=== PATIENT | male | born 1960 | race Caucasian/White ===

== ENCOUNTER 2025-03-06 17:30 | Inpatient (IN) | payer OTHER, SELFPAY ==
[2025-03-06] VITALS (11 sets, daily range): BP systolic 113–152; BP diastolic 54–81; BMI 32.2; BMI 31.8
[2025-03-06 12:43] LABS: INR 1.03; PT 14.0 Sec (11.4-14.6)
[2025-03-06 12:44] LABS: APTT 32.7 Sec (23.4-35.0); Hematocrit 41.3 % (39.0-52.0); Hemoglobin 14.5 g/dL (13.0-18.0); Mean Corp Hgb Conc. 35.1 g/dL (33.0-37.0); Mean Corpuscular Volume 95.8 fL (80.0-94.0); Nucleated Red Blood Cells % 0 % (-); Platelet Count 118 10^3/uL (130-400); Red Cell Dist. Width 13.4 % (11.5-14.5)
[2025-03-06 12:55] LABS: ALT (SGPT) 18 U/L (0-50); AST (SGOT) 35 U/L (17-59); Albumin 4.3 g/dl (3.5-5.0); Alkaline Phosphatase 79 U/L (38-126); Blood Urea Nitrogen 14 mg/dl (9-20); Calcium 9.1 mg/dl (8.4-10.2); Carbon Dioxide 22 mmol/L (22-30); Chloride 107 mmol/L (98-107); Estimated Creatinine Clearance > 125 ml/min; Glucose 109 mg/dl (70-99); Potassium 4.5 mmol/L (3.5-5.1); Sodium 137 mmol/L (135-145); Total Protein 7.6 g/dl (6.3-8.2); eGFR > 60.00
[2025-03-06 13:06] LABS: Troponin I 0.021 ng/ml
--- NOTE | 2025-03-06 14:56 | ED.GENMED ---
History of Present Illness
General
Chief Complaint: Cardiac Symptoms
Time Seen by Provider: 03/06/25 11:52
Nursing documentation reviewed up to this point in time: agreed with
History of Present Illness
History of Present Illness:
64-year-old male presents to the ER for evaluation of feeling short of breath along with lightheadedness. Admittedly his shortness of breath has been provoked with exertion and worsening in intensity over the last several days. Patient denies any
cough or cold symptoms. He no longer smokes cigarettes but has an extensive prior cigarette smoking history. He does continue to vape and states that he vapes 'a lot' in the car on the way over to the ER. He denies any fevers or chills. He
denies any chest pain but states he felt a severe tightness in his back, that is provoked with exertion. No prior personal history of ACS. He did not take any medications for his symptoms. He denies fevers or chills. He denies sore throat. No
peripheral edema. No prior personal history of DVT.
Past History
Past History
ED Past Medical History: Other (gout right great toe); Negative HTN
ED Past Surgical History: Appendectomy
Social History
Tobacco: Smoker
Alcohol: Occasional
Family History
Family History: Other (Mother with diverticulosis, sister with IBS)
Review of Systems
Review of Systems
Allergies reviewed?: Yes
Phy Exam
Physical Exam
Physical Exam:
Patient is awake, alert, ruborous complexion, appears in no acute distress, head is NCAT, PERRL, EOMI mucous membranes moist, conjunctiva pink, heart regular rate and rhythm without murmurs or ectopy, lungs are clear to auscultation without wheezes
rales or rhonchi, no JVD, abdomen is soft and nontender on palpation, extremities without edema, GCS is 15
Course
Orders/Labs/Results
Orders:
Orders
03/06/25 11:41
Electrocardiogram (*1) Urgent
Reason for Study: Abnormal EKG
03/06/25 11:42
EKG- Treatment ONCE
03/06/25 12:02
O2 Therapy [RESP] Stat
Nasal Cannula Liter Flow: 2 LPM
Titrate/Wean O2 to maintain O2 sat greater than (%): 92
03/06/25 12:03
CT Chest PE Study Urgent
Comment:
Reason For Exam: dyspnea, hypoxia
Cardiac Monitoring- Treatment ONCE
03/06/25 12:24
Complete Blood Count/With Diff Urgent
Comprehensive Metabolic Panel Urgent
NT-proBNP Urgent
PTT Urgent
Prothrombin Time Urgent
Troponin I Q3H
03/06/25 15:22
Troponin I Q3H
03/06/25 15:36
Electrocardiogram (*1) Urgent
Reason for Study: Chest Pain
EKG- Treatment ONCE
03/06/25 15:50
Ipratropium/Albuterol Sulfate [Duoneb] 3 ml INH R NOW STA
MethylPREDNISolone PF [Solu-Medrol Pf] 125 mg IV NOW STA
Abnormal Lab Results
03/06/25
12:24
RBC 4.31 L 10^6/uL
(4.70-6.10)
MCV 95.8 H fL
(80.0-94.0)
MCH 33.6 H pg
(27.0-31.0)
Plt Count 118 L 10^3/uL
(130-400)
MPV 11.2 H fL
(7.4-10.4)
Creatinine 0.6 L mg/dL
(0.7-1.3)
Glucose 109 H mg/dl
(70-99)
03/06/25 12:24
03/06/25 12:24
CBC and chemistries within normal limits. Initial troponin just above baseline normal. Will repeat.
Vital Signs
Initial and Last Documented VS:
Initial Vital Signs
Temp Pulse Resp BP Pulse Ox
98.7 F 57 23 150/81 92
03/06/25 11:43 03/06/25 11:43 03/06/25 11:43 03/06/25 11:43 03/06/25 11:43
Last Documented Vital Signs
Temp Pulse Resp BP Pulse Ox
98.5 F 47 15 149/69 98
03/06/25 11:59 03/06/25 14:40 03/06/25 14:40 03/06/25 14:00 03/06/25 15:01
MDM/Problems Addressed
Differential Diagnosis Includes:
Differential diagnosis to consider but not limited to pulmonary embolism, ACS, pneumonia, pleural effusion, congestive heart failure along with other etiologies considered
Chronic conditions affecting care:
Chronic tobacco use, age greater than 50, high cholesterol, gout
*Radiology
Radiology exam reviewed: radiology read reviewed
*Pulse Oximetry
SaO2: 98
Nasal Cannula flow liters per minute: 3
Patient hypoxic: yes
*EKG
Interpreted by ED Provider?: Yes (I independently viewed and interpreted twelve-lead EKG showing sinus bradycardia, right bundle branch block, rate 52, normal axis, nonspecific abnormal EKG without evidence for acute ischemia though worsening T wave
appearance compared to prior from 05/09/2016)
*Theater Projectionist Interpretation
Rate: bradycardiac (I independently viewed and interpreted rhythm strip showing sinus bradycardia, no ectopy)
*Critical Care Note
Total Time (30-74mins, 75-104mins- exclusive of procedures): Not Applicable
Update Note
Update Note:
Patient feeling much better on oxygen. I reviewed all test results with patient and present at bedside. No evidence for PE or pneumonia, changes consistent with pulmonary fibrosis seen on CT. DuoNebs ordered as symptoms may be related to
COPD. I had initially ordered Solu-Medrol but in further discussion with patient and present at bedside he would decline any steroids as he had a severe core reaction to a previous Medrol Dosepak-became so profoundly weak with joint aches
that he was unable to ambulate. I reviewed full patient presentation with the hospitalist, who accepts patient for admission for further evaluation and treatment of exertional dyspnea with hypoxia
ED Attending Note
-
Portions of this chart may have been created with voice recognition software.� Occasional wrong word or��sound alike� substitutions may have occurred due to the inherent limitations of voice recognition software.
Discharge Plan
Departure
Patient Disposition: Admit
Date of Disposition: 03/06/25
Time of Disposition: 16:06
Presentation/result/management discussed w/ accepting MD/DO: Hospitalist
Discharge Problem:
Hypoxia, Acute dyspnea, Pulmonary fibrosis
Prescriptions:
No Action
sertraline 25 MG tablet
25 mg PO DAILY
sennosides [senna] 1 TABLET tablet
2 tab PO BID Qty: 0 0RF
acetaminophen 325 MG tablet
650 mg PO QID Qty: 0 0RF
tizanidine 2 MG tablet
2 mg PO TID Qty: 45 0RF
Rx Instructions:
tid x1week then q6h prn pain/spasm
polyethylene glycol 3350 17 GRAMS powder in packet
17 grams PO DAILY Qty: 0 0RF
hydromorphone 2 MG tablet
2 mg PO Q4HPRN PRN (Reason: moderate-severe pain) Qty: 90 0RF
Rx Instructions:
dx brian
1-2 tabs
magnesium hydroxide 30 ML suspension
30 ml PO DAILYPRN PRN (Reason: constipation) Qty: 0 0RF
aspirin 325 MG tablet,delayed release (DR/EC)
325 mg PO DAILY Qty: 0 0RF
simvastatin 20 MG tablet
20 mg PO HS Qty: 0 0RF
docusate sodium 100 MG capsule
100 mg PO BID Qty: 0 0RF
prochlorperazine maleate 10 MG tablet
10 mg PO Q6HPRN PRN (Reason: nausea/dizziness) Qty: 30 0RF
naproxen 250 MG tablet
250 mg PO TID PRN (Reason: breakthru pain) Qty: 30 0RF
famotidine 20 MG tablet
20 mg PO HS Qty: 0 0RF
Referrals:
Nate Louis MD [Family Provider, Family Practice]
Interventions
Interventions:
*Risk Screen - Suicide Last Done: 03/06/25 11:43
*General Assessment Last Done: 03/06/25 12:10
*Neglect/Abuse Screening Last Done: 03/06/25 11:43
*ED- Fall Risk Assessment Last Done: 03/06/25 12:07
*ED COVID-19 Vaccine History Last Done: 03/06/25 11:43
ED- Pulmonary Assessment Last Done: 03/06/25 14:41
ED- Cardiac Assessment Last Done: 03/06/25 14:41
Discharge Date and Time
Print Language: IVORIAN
[2025-03-06 16:04] LABS: Troponin I 0.017 ng/ml
--- NOTE | 2025-03-06 16:16 | HPS.HSE ---
Family Physician
-
Family Physician: Nate Louis
Chief Complaint
-
shortness of breath
History of Present Illness
Mr. Nate Leal is a 64 yo man with hx gout, HLD, prior tobacco use presents to the ER feeling short of breath and lightheaded.
Patient states shortness of breath has been progressive but getting work. Sometimes when exerting himself such as going upstairs he felt lightheaded but never passed out. Denies chest pain. He went to PCP today and was sent to ER. At triage he
was noted to be hypoxic to 84%.
No fevers/chills. No cough/congestion. He used to smoke cigarettes, now vapes. No alcohol use. Per partner, he has undiagnosed sleep apnea. No LE swelling.
Medical History
Past Medical History
Past Medical History: Reports Other (gout, HLD, prior tobacco use )
Past Surgical History: Reports Appendectomy
Social History
Tobacco: Former Smoker
Family History
Family History: Not pertinent
Allergies / Home Medications
Allergies reflects when Allergies were last updated in [employer].
Home Medications with original date entered in [employer]
Allergy/Medication List:
Allergies
Allergy/AdvReac Type Severity Reaction Status Date / Time
prednisone Allergy SEVERE Verified 06/13/22 14:09
JOINT PAIN
Home Medications
allopurinol 300 mg tablet 300 mg PO HS 03/06/25
aspirin 81 mg tablet,delayed release 324 mg PO DAILYPRN PRN CHEST PAINS 03/06/25
celecoxib 200 mg capsule (Celebrex) 200 mg PO HS 03/06/25
sertraline 50 mg tablet 25 mg PO HS 03/06/25
Review of Systems
-
History Source: Patient
A 12 point ROS was completed and negative except as noted: Yes
Physical Exam
Vital Signs
Vital Signs
Temp Pulse Resp BP Pulse Ox
98.5 F 47 15 149/69 98
03/06/25 11:59 03/06/25 14:40 03/06/25 14:40 03/06/25 14:00 03/06/25 15:01
Physical Exam
General: No Apparent Distress
HEENT: PERRLA
Respiratory: Rales (inspiratory ); No Wheezes
Cardiac: S1/S2 and Regular Rhythm
GI: Soft and Non Tender
Musculoskeletal: No Edema
Skin: Warm and Dry; No Rash
Neuro: AO x 3
Psych: Calm
Laboratory Results
-
03/06/25 12:24
03/06/25 12:24
Laboratory Results
PT 14.0 Sec (11.4-14.6) 03/06/25 12:24
INR 1.03 03/06/25 12:24
APTT 32.7 Sec (23.4-35.0) 03/06/25 12:24
Total Bilirubin 1.3 mg/dl (0.2-1.3) 03/06/25 12:24
AST 35 U/L (17-59) 03/06/25 12:24
ALT 18 U/L (0-50) 03/06/25 12:24
Alkaline Phosphatase 79 U/L (38-126) 03/06/25 12:24
Troponin I 0.017 ng/ml 03/06/25 15:22
Data Reviewed
-
Diagnostic Radiology: Report Reviewed by me
Lab Data: Labs Reviewed by me
Impression/Plan
-
Mr. Nate Leal is a 64 yo man with hx gout, HLD, prior tobacco use and current vaping presents to the ER with progressive shortness of breath, found to be hypoxic to 84% at triage.
Triage VS: T 98.7, P 57, RR 23, BP 150/81, SpO2 84% at triage, placed on 2L
LABS: WBC 6.4, HG 14.5, PLT 118, Na 137, K+ 4.5, CO2 22, Cr 0.6, Glucose 109, liver enzymes WNL, Trop 0.021 --> 0.017
BNP [address]
IMPRESSION: No acute disease of the chest. No pulmonary embolus.
Moderate bilateral hilar and mild mediastinal lymphadenopathy. Nonspecific. Probable reactive.
Moderate pulmonary fibrosis.
Severe pancreatic fatty infiltration.
If the patient has emphysema, patient should be assessed for an annual low dose lung cancer CT program, as pulmonary emphysema is an independent risk factor for lung cancer.
Patient placed on oxygen in the ER
Shortness of Breath
Hypoxic Respiratory Insufficiency
Former Tobacco Use, Current Vaping
Moderate Pulmonary Fibrosis
-admit to telemetry
-O2 support, keep SpO2 > 92%
-Duonebs
-Pulmonary consult
-no wheezing and bad reaction to steroids in past (myopathy), will avoid
-patient aware he may need to go home on steroids
-will need a sleep study as outpatient
-vaping cessation education
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
BUTADIENE CONVERTER OPERATOR Sertraline qhs
DVT PPx Lovenox subQ
FULL CODE
[2025-03-06] MEDS: DUONEB 3 ML INH ×2 (16:20→19:37)
--- NOTE | 2025-03-06 17:46 | EDCM ---
CM reviewed chart and met with pt bedside in ED. Lives with his SO Sandra in bilevel home, 4 GEREMI[address], 4 steps up to main level and bedroom, full bath.
Independent in ADLs, personal care and ambulation at baseline, no assistive devices. 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
Confirms prescription coverage.
Hx [facility] after hip replacement, no hx SNF
PCP: Nate Louis
Pharmacy: [facility]
CM will continue to follow for all discharge planning needs.
--- NOTE | 2025-03-06 21:43 | PTCARENOTE ---
Patient arrived from the ED via stretcher. Patient ambulated into the room, AAOx3. VSS. 94% on 3L O2 NC. Patient has no complaints of pain. Oriented to the room. Updated on plan of care and medications. Call heart is within reach.
[2025-03-06] MEDS: CELEBREX 200 MG PO (22:22)
[2025-03-06] MEDS: ZYLOPRIM 300 MG PO (22:22)
[2025-03-06] MEDS: ZOLOFT 25 MG PO (22:22)
[2025-03-07 03:22] VITALS: BP 106/56
[2025-03-07 06:38] LABS: Hematocrit 41.3 % (39.0-52.0); Hemoglobin 14.3 g/dL (13.0-18.0); Mean Corp Hgb Conc. 34.6 g/dL (33.0-37.0); Mean Corpuscular Volume 98.1 fL (80.0-94.0); Nucleated Red Blood Cells % 0 % (-); Platelet Count 104 10^3/uL (130-400); Red Cell Dist. Width 13.3 % (11.5-14.5)
[2025-03-07 07:00] VITALS: BP 119/57
[2025-03-07 07:07] LABS: Blood Urea Nitrogen 15 mg/dl (9-20); Calcium 9.1 mg/dl (8.4-10.2); Carbon Dioxide 29 mmol/L (22-30); Chloride 104 mmol/L (98-107); Estimated Creatinine Clearance 104 ml/min; Glucose 102 mg/dl (70-99); Magnesium 1.7 mg/dl (1.6-2.3); Potassium 4.8 mmol/L (3.5-5.1); Sodium 140 mmol/L (135-145); eGFR > 60.00
[2025-03-07] MEDS: DUONEB 3 ML INH ×4 (07:19→19:44)
[2025-03-07] MEDS: PULMICORT 0.5 MG INH ×2 (11:10→19:44)
[2025-03-07 11:11] VITALS: BP 124/54
--- NOTE | 2025-03-07 11:37 | CON.PUL ---
Consultation
Consultation Request
Date/Time Consultation Requested: 03/07/2025
Date/Time Consultation Performed: 03/07/2024
Requesting Provider: Dr. Rogers
Performing Provider: Dr. Matteo Perez
Reason for Consultation: Acute hypoxemic respiratory failure/pulmonary fibrosis
Medical History
-
History of Present Illness:
64-year-old male with history of gout, hyperlipidemia, prior tobacco use presented to the emergency room with shortness of breath and lightheadedness.
Shortness of breath has been progressive over time. Sometimes when with exertion he develops lightheadedness. Denies any exertional chest pain. Denies syncopal episode.
He was found to be hypoxemic down to 84% on room air.
Denies phlegm production, hemoptysis, fevers or chills. Night sweats.
He is a former smoker quit in 2016 but now only Vapes.
- Patient reports progressive shortness of breath over many years.
Lately has been more significant associated with lightheadedness. Usually recovers after resting. Denied exertional chest pain.
Denies extrapulmonary symptoms.
-
Denies PND, orthopnea leg edema.
-
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
Denies family history of interstitial lung disease, emphysema or COPD.
-
Patient also reports symptoms suggestive of obstructive sleep apnea.
Past Medical History
Past Medical History: Other (See assessment and plan)
Social History
Tobacco: Vaping (Former smoker quit in 2016, 25+ pack-year history.)
Alcohol: None
Drug: None
Occupational Exposures: Denies
Environmental Exposures: Denies
Family History
Family History: Reviewed & Not Pertinent
Allergies / Home Medications
Allergies
Allergy/AdvReac Type Severity Reaction Status Date / Time
prednisone Allergy SEVERE Verified 06/13/22 14:09
JOINT PAIN
Home Medications
�Medication �Instructions �Recorded �Confirmed �Last Taken �Type
allopurinol 300 mg tablet 300 mg PO HS Gout 03/06/25 03/06/25 03/05/25 History
aspirin 81 mg tablet,delayed 324 mg PO DAILYPRN PRN CHEST PAINS 03/06/25 03/06/25 03/06/25 History
release
celecoxib 200 mg capsule (Celebrex) 200 mg PO HS Pain 03/06/25 03/06/25 03/05/25 History
sertraline 50 mg tablet 25 mg PO HS Mental Health/Anxiety 03/06/25 03/06/25 03/05/25 History
Review of Systems
-
History Source: Patient
All other systems: Negative unless noted
Vitals / Labs / Diagnostic Testing
Vital Signs
Temp Pulse Resp BP Pulse Ox
97.8 F 55 16 124/54 97
03/07/25 11:11 03/07/25 11:11 03/07/25 11:11 03/07/25 11:11 03/07/25 11:11
Lab Data
03/07/25 06:14
03/07/25 06:14
Laboratory Results
03/06/25
12:24
PT 14.0
INR 1.03
APTT 32.7
Diagnostic Testing:
Physical Exam
-
HEENT: Normocephalic
Cardiovascular: S1/S2
Respiratory: Wheeze (None), Rales (Bibasilar) and Non-Labored Respirations
GI: Soft and Non Distended
Neurology: Awake, Alert, AO x 3 and No Motor Deficits
Skin: Warm
General: Comfortable
Assessment
-
64-year-old man who is a former smoker, currently vaping comes to the emergency room complaining of progressive shortness of breath. Now associated with lightheadedness with exertion. He was found to be hypoxemic down to 84% on room air.
We were consulted for abnormal CT chest consistent with pulmonary fibrosis.
Acute hypoxemic respiratory failure currently 1 L at rest
Abnormal CT chest: Pulmonary fibrosis, lower lobe predominant, centripetal distribution. No pleural effusion. Enlarged mediastinal/hilar lymph nodes possibly reactive.
Negative troponin/slightly increased proBNP.
Snoring: At risk for obstructive sleep apnea.
-
Conditions present prior admission:
Gout
Former smoker
Active vaping
Anxiety
-
Assessment and plan:
Symptoms explained by patient's underlying pulmonary fibrosis-new diagnosis for him.
Reviewed imaging of the chest compared to current CAT scan-he did have mild pulmonary fibrosis back in [address] abdomen pelvis lung cuts, it has progressed.
-
Current CT chest from this admission reviewed. 03/06/2025
No evidence for pulmonary embolism.
There is mild mediastinal lymphadenopathy. The largest lymph node is pretracheal on the right. It measures 2.4 x 1.0 cm cm.
There is moderate bilateral hilar lymphadenopathy. On the right it measures 2.3 x 1.4 cm. On the left it measures approximately 1.9 x 1.2 cm.
There is no axillary lymphadenopathy.
There is moderate pulmonary fibrosis in the periphery of the lungs greatest in the left lower lobe.
-
Patient now has exertional hypoxemia: Oxygen supplementation will be required.
Home oxygen assessment in the morning. Likely reason for patient's shortness of breath, his work is very physical and he was having difficulty completing certain tasks.
-
Discussed with patient strongly advised to stop vaping.
Quit smoking in 2016. 20+ pack-year history of smoking.
-
Differential diagnosis is broad including: Connective tissue disease associated ILD, Idiopathic interstitial pneumonia, with mediastinal lymphadenopathy sarcoidosis is a possibility, not typical for vaping associated injury-no significant
centrilobular nodules or ground glass opacities but is still within the differential diagnosis.
Occupational exposure also a possibility-patient is exposed to hydrocarbons, silica dust and multiple other chemicals at work for many years.
-
LFTs normal, renal function normal, no anemia, leukocytosis or Significant peripheral eosinophilia.
There is no hypercalcemia.
Patient denies any other extrapulmonary symptoms including hair loss, rash, arthritis, GI symptoms.
Patient reports having significant reaction to prednisone before with bilateral hip pain severe-prednisone was given for respiratory symptoms many years ago.
-
Patient will require serology evaluation for connective tissue disease, hypersensitivity pneumonitis etc.
Probably will recommend bronchoscopy with BAL as well as lymph node sampling-rule out sarcoidosis.
All this could be performed in the outpatient setting
I did discuss with patient and short-term follow-up will be arranged.
-
Okay to continue with nebulizer for now. On CAT scan patient has mild emphysema upper lobe predominant
Not significantly bronchospastic.
Eventual full pulmonary function testing.
Necessity of inhalers can be decided in the outpatient setting based on pulmonary function testing.
-
Rule out cardiac contribution for symptoms
Echocardiogram pending
Patient is chest pain-free
EKG: Sinus bradycardia. Right bundle branch block. T wave abnormality consider inferolateral ischemia.
-
Patient also have symptoms suggestive of obstructive sleep apnea.
Interested in workup in the outpatient setting.
-
Will arrange for short-term follow-up in our office. Will need pulmonary function testing, 6-minute walk testing etc.
-
Will follow.
-
If there is no significant cardiac abnormality and patient clinically improved
Can be discharged and workup can be completed in the outpatient setting-likely will need to be discharged on supplemental oxygen.
--- NOTE | 2025-03-07 12:06 | CM ---
Spoke with patient in room .
He is currently on 4 liters NC oxygen Pox 98%. Will need home oxygen test at discharge if O2 remains.
Pt for Echo .
Started on Steroids.
Pulmonary involved.
Offered VN he declined need.
PLAN Home no anticipated needs .
Watch for Home oxygen needs
--- NOTE | 2025-03-07 12:29 | W.PN.HOSP.TC ---
Today's Communication/Plan
-
Monitor vitals
See plan
Check echo
Continue with nebulizer, added Pulmicort
Pulmonary following
Wean oxygen, check home O2 evaluation
Assessment / Plan
Assessment / Plan
General: No Apparent Distress
HEENT: PERRLA
Respiratory: Rales (inspiratory ); No Wheezes
Cardiac: S1/S2 and Regular Rhythm
GI: Soft and Non Tender
Musculoskeletal: No Edema
Skin: Warm and Dry; No Rash
Neuro: AO x 3
Psych: Calm
Shortness of Breath
Hypoxic Respiratory Insufficiency
Former Tobacco Use, Current Vaping
Moderate Pulmonary Fibrosis
Continue nasal cannula, wean oxygen as tolerated
Check home O2 evaluation
-Duonebs, added Pulmicort
-Pulmonary following, a lot of workup can be done outpatient which I agree. Check echocardiogram to rule out cardiac causes.
-no wheezing and bad reaction to steroids in past (myopathy), will avoid
-patient aware he may need to go home on steroids
-will need a sleep study as outpatient
-vaping cessation education
Gout - PALLIATIVE CARE NURSE Allopurinol
PALLIATIVE CARE NURSE Sertraline qhs
Anxiety
DVT PPx Lovenox subQ
FULL CODE
Anticipated Discharge: Within 24 hours
Subjective/Interval History
-
Date of Service: March 07, 2025
denies chest pain
Objective Data
-
Labs:
Laboratory Results
03/07/25
06:14
WBC 6.0
Hgb 14.3
Hct 41.3
Plt Count 104 L
Sodium 140
Potassium 4.8
Chloride 104
Carbon Dioxide 29
BUN 15
Creatinine 0.9
Glucose 102 H
Calcium 9.1
Vital Signs:
Vital Signs
Temp Pulse Resp BP Pulse Ox
97.8 F 55 16 124/54 97
03/07/25 11:11 03/07/25 11:11 03/07/25 11:11 03/07/25 11:11 03/07/25 11:11
I&O
03/06/25 03/07/25 03/08/25
06:59 06:59 06:59
Intake Total 480 / 480 540 / 540
Balance 480 / 480 540 / 540
[2025-03-07 15:00] VITALS: BP 123/62
[2025-03-07 19:00] VITALS: BP 123/56
[2025-03-07] MEDS: CELEBREX 200 MG PO (20:25)
[2025-03-07] MEDS: ZYLOPRIM 300 MG PO (20:25)
[2025-03-07] MEDS: ZOLOFT 25 MG PO (20:25)
[2025-03-08 03:25] VITALS: BP 105/60
[2025-03-08 07:25] VITALS: BP 140/64
[2025-03-08] MEDS: DUONEB 3 ML INH ×3 (07:30→20:05)
[2025-03-08] MEDS: PULMICORT 0.5 MG INH ×2 (07:30→20:05)
[2025-03-08 08:16] LABS: Hematocrit 39.8 % (39.0-52.0); Hemoglobin 14.0 g/dL (13.0-18.0); Mean Corp Hgb Conc. 35.2 g/dL (33.0-37.0); Mean Corpuscular Volume 95.9 fL (80.0-94.0); Nucleated Red Blood Cells % 0 % (-); Platelet Count 113 10^3/uL (130-400); Red Cell Dist. Width 13.5 % (11.5-14.5)
[2025-03-08 08:46] LABS: Blood Urea Nitrogen 13 mg/dl (9-20); Calcium 9.1 mg/dl (8.4-10.2); Carbon Dioxide 25 mmol/L (22-30); Chloride 106 mmol/L (98-107); Estimated Creatinine Clearance > 125 ml/min; Glucose 101 mg/dl (70-99); Potassium 4.3 mmol/L (3.5-5.1); Sodium 138 mmol/L (135-145); eGFR > 60.00
[2025-03-08 11:50] VITALS: BP 122/56
--- NOTE | 2025-03-08 12:18 | W.PN.HOSP.TC ---
Addendum entered and electronically signed by Du Kahn MD 03/08/25 14:51:
Patient is in need of oxygen on exertion due to pulse oximetry of 91% on room air at rest; 84% on room air with exertion.
Patient was placed on 3L O2 via nasal cannula with saturation of 90%. Oxygen will help to improve hypoxemia.
Patient is mobile within the home. Albuterol therapy has been discussed and is ineffective in treating hypoxemia-related symptoms.
Oxygen will improve the patient's symptoms.
Original Note:
Today's Communication/Plan
-
Monitor vital signs see plan
Continue with nebs for now
Home O2 evaluation
Pulmonary following
Assessment / Plan
Assessment / Plan
General: No Apparent Distress
HEENT: PERRLA
Respiratory: Clear to auscultation, no wheezes
Cardiac: S1/S2 and Regular Rhythm
GI: Soft and Non Tender
Musculoskeletal: No Edema
Skin: Warm and Dry; No Rash
Neuro: AO x 3
Psych: Calm
Shortness of Breath
Hypoxic Respiratory Insufficiency
Former Tobacco Use, Current Vaping
Moderate Pulmonary Fibrosis, will need further workup with pulmonology outpatient
Continue nasal cannula, wean oxygen as tolerated
Check home O2 evaluation
-Duonebs, added Pulmicort
-Pulmonary following, a lot of workup can be done outpatient which I agree. Echocardiogram with preserved EF, aortic sclerosis without stenosis
-no wheezing and bad reaction to steroids in past (myopathy), will avoid
-will need a sleep study as outpatient
-vaping cessation education
Gout - QC CHEMIST Allopurinol
QC CHEMIST Sertraline qhs
Anxiety
DVT PPx Lovenox subQ
FULL CODE
Anticipated Discharge: Today
Subjective/Interval History
-
Date of Service: March 08, 2025
denies pain
Objective Data
-
Labs:
Laboratory Results
03/08/25
07:43
WBC 6.1
Hgb 14.0
Hct 39.8
Plt Count 113 L
Sodium 138
Potassium 4.3
Chloride 106
Carbon Dioxide 25
BUN 13
Creatinine 0.7
Glucose 101 H
Calcium 9.1
Vital Signs:
Vital Signs
Temp Pulse Resp BP Pulse Ox
98.3 F 56 18 122/56 94
03/08/25 11:50 03/08/25 11:50 03/08/25 11:50 03/08/25 11:50 03/08/25 11:50
I&O
03/07/25 03/08/25 03/09/25
06:59 06:59 06:59
Intake Total 480 / 480 540 / 540
Balance 480 / 480 540 / 540
[2025-03-08 15:04] VITALS: BP 110/49
--- NOTE | 2025-03-08 17:22 | W.PN.PUL3 ---
Today's Communication / Plan
-
Check CTD panel, HP panel + CRP/ESR tomorrow morning
Hold off on starting systemic steroids at this time
Start DuoNebs + continue budesonide
Outpatient PFTs + 6MWT
Case management consult to get patient set up for home oxygen (3 L/minute with activity)
Hopefully can be discharged home tomorrow; outpatient pulmonary office follow up will be arranged
Assessment
-
64-year-old man who is a former smoker, currently vaping comes to the emergency room complaining of progressive shortness of breath. Now associated with lightheadedness with exertion. He was found to be hypoxemic down to 84% on room air.
We were consulted for abnormal CT chest consistent with pulmonary fibrosis.
Acute hypoxemic respiratory failure currently 2 L at rest
Abnormal CT chest: Pulmonary fibrosis, lower lobe predominant, centripetal distribution with traction bronchiectasis and honeycombing. No pleural effusion. Enlarged mediastinal/hilar lymph nodes possibly reactive.
Negative troponin/slightly increased proBNP.
Snoring: At risk for obstructive sleep apnea.
Paraseptal emphysema
RML 8 x 4mm nodule
-
Conditions present prior admission:
Gout
Former smoker (1�2 PPD x 40 years, quit 2015)
Active nicotine vaping
Anxiety
History of hip AVN
-
Assessment and plan:
Symptoms explained by patient's underlying pulmonary fibrosis-new diagnosis for him.
Reviewed imaging of the chest compared to current CAT scan-he did have mild pulmonary fibrosis back in [address] abdomen pelvis lung cuts, it has progressed.
-
Current CT chest from this admission reviewed. 03/06/2025
No evidence for pulmonary embolism.
There is mild mediastinal lymphadenopathy. The largest lymph node is pretracheal on the right. It measures 2.4 x 1.0 cm cm.
There is moderate bilateral hilar lymphadenopathy. On the right it measures 2.3 x 1.4 cm. On the left it measures approximately 1.9 x 1.2 cm.
There is no axillary lymphadenopathy.
There is moderate pulmonary fibrosis in the periphery of the lungs greatest in the left lower lobe.
-
Patient now has exertional hypoxemia: Oxygen supplementation will be required.
Home oxygen assessment today showed resting SaO2 on room air 91%, with desaturation down to 84% on room air, and he required up to 3 L/min to maintain saturations >88%; he will need 3 L/min upon discharge to be used with activity; of note, his work
is very physical and he was having difficulty completing certain tasks.
-
Discussed with patient strongly advised to stop vaping.
Quit smoking in 2016. 40+ pack-year history of smoking.
-
Differential diagnosis is broad including: Connective tissue disease associated ILD, Idiopathic interstitial pneumonia, with mediastinal lymphadenopathy sarcoidosis is a possibility, not typical for vaping associated injury-no significant
centrilobular nodules or ground glass opacities but is still within the differential diagnosis.
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
-
LFTs normal, renal function normal, no anemia, leukocytosis or Significant peripheral eosinophilia.
There is no hypercalcemia.
Patient denies any other extrapulmonary symptoms including hair loss, rash, arthritis, GI symptoms.
Patient reports having significant reaction to prednisone before with bilateral hip pain severe-prednisone was given for respiratory symptoms many years ago.
-
Patient will require serology evaluation for connective tissue disease, hypersensitivity pneumonitis etc --> I will order this now for tomorrow
Probably will recommend bronchoscopy with BAL as well as lymph node sampling-rule out sarcoidosis.
Will discuss bronchoscopy in the outpatient setting
Dr. Perez discussed with patient and short-term follow-up will be arranged.
-
Okay to continue with budesonide for now and I will add scheduled DuoNebs BID; On CAT scan patient has mild emphysema upper lobe predominant
Not significantly bronchospastic.
Eventual full pulmonary function testing.
Necessity of inhalers can be decided in the outpatient setting based on pulmonary function testing.
-
Rule out cardiac contribution for symptoms
Echo performed on 03/07/2025 shows normal LV size and systolic function with mild concentric LVH, with normal RV size and systolic function, with moderate MR and trace TR
Patient is chest pain-free
EKG: Sinus bradycardia. Right bundle branch block. T wave abnormality consider inferolateral ischemia.
-
Patient also have symptoms suggestive of obstructive sleep apnea.
Interested in workup in the outpatient setting.
-
Will arrange for short-term follow-up in our office. Will need pulmonary function testing, 6-minute walk testing etc.
-
Will follow.
-
Hopefully can be discharged home tomorrow; consult case management to work on getting pt home oxygen
Total time spent today was 38 minutes for this encounter. Time includes reviewing laboratory test/imaging results, reviewing pertinent medical records, obtaining and reviewing medical history, performing an appropriate exam, ordering medications,
tests and procedures. Time also includes documentation of this encounter, coordinating patient care and communicating with other healthcare professionals. Total time does not include separately billed tests performed on this date of service.
Subjective Data
-
Date of Service:
Date of Service: March 08, 2025
Chief Complaint: Pulmonary Follow Up
Subjective:
Patient was seen and evaluated today at bedside (late note entry). Sitting in bed in no acute distress, in good spirits. Says he breathes much better with the oxygen on. He currently denies SOB at rest, denies chest pain, OCASIO, nausea, fevers or
chills.
Review of Systems
General: Other (Negative unless mentioned above)
Objective Data
Data Reviewed
Vital Signs / I&O / Oxygen:
Vital Signs
Temp Pulse Resp BP Pulse Ox
97.6 F 58 16 105/60 92
03/08/25 03:25 03/08/25 07:37 03/08/25 07:37 03/08/25 03:25 03/08/25 07:37
Intake and Output
03/07/25 03/08/25 03/09/25
06:59 06:59 06:59
Intake Total 480 / 480 540 / 540
Balance 480 / 480 540 / 540
SaO2 92
Nasal Cannula flow liters per 2
minute
Physical Exam
General: Respiratory Distress (negative), Comfortable, Chills (negative), Sweats (negative) and Other ( male, in NAD; pleasant mood)
HEENT: Normocephalic and Anicteric
Cardiovascular: S1-S2 and Peripheral Edema (negative)
Respiratory: Wheeze (negative), Crackles (Bilateral from the bases to middle lung malone), Rhonchi (negative), Non-Labored Respirations and Stridor (negative)
GI: Soft, Non Distended, Non Tender and Normal Bowel Sounds
Neurology: AO x 3 and Tremors (negative)
Skin: Warm, Dry, Cyanosis (negative) and Jaundice (negative)
Labs/Micro/Reports
Lab Data
03/08/25 07:43
03/08/25 07:43
[2025-03-08] MEDS: CELEBREX 200 MG PO (22:29)
[2025-03-08] MEDS: ZYLOPRIM 300 MG PO (22:29)
[2025-03-08] MEDS: ZOLOFT 25 MG PO (22:29)
[2025-03-08 23:46] VITALS: BP 124/54
[2025-03-09 06:11] LABS: Hematocrit 40.1 % (39.0-52.0); Hemoglobin 13.8 g/dL (13.0-18.0); Mean Corp Hgb Conc. 34.4 g/dL (33.0-37.0); Mean Corpuscular Volume 98.5 fL (80.0-94.0); Nucleated Red Blood Cells % 0 % (-); Platelet Count 107 10^3/uL (130-400); Red Cell Dist. Width 13.4 % (11.5-14.5)
[2025-03-09 06:32] LABS: Blood Urea Nitrogen 15 mg/dl (9-20); Calcium 9.3 mg/dl (8.4-10.2); Carbon Dioxide 25 mmol/L (22-30); Chloride 105 mmol/L (98-107); Estimated Creatinine Clearance 118 ml/min; Glucose 100 mg/dl (70-99); Potassium 4.1 mmol/L (3.5-5.1); Sodium 137 mmol/L (135-145); eGFR > 60.00
[2025-03-09 06:34] LABS: C-Reactive Protein 6.40 mg/L (0.0-10.00)
[2025-03-09 07:45] VITALS: BP 125/65
[2025-03-09] MEDS: DUONEB 3 ML INH (08:14)
[2025-03-09] MEDS: PULMICORT 0.5 MG INH (08:14)
--- NOTE | 2025-03-09 10:45 | W.PN.PUL3 ---
Today's Communication / Plan
-
Follow up CTD panel + HP panel; both CRP + ESR are WNL
Hold off on starting systemic steroids at this time
Continue DuoNebs + continue budesonide --> DC home on these; CM consult to obtain nebulizer machine with mask/tubing
Outpatient PFTs + 6MWT
Case management consult to get patient set up for home oxygen (3 L/minute with activity)
Stable for discharge home from Pulmonary perspective. Pulmonary service will now sign off. Please call back with any questions or concerns
Assessment
-
64-year-old man who is a former smoker, currently vaping comes to the emergency room complaining of progressive shortness of breath. Now associated with lightheadedness with exertion. He was found to be hypoxemic down to 84% on room air.
We were consulted for abnormal CT chest consistent with pulmonary fibrosis.
Acute hypoxemic respiratory failure currently 2 L at rest
Abnormal CT chest: Pulmonary fibrosis, lower lobe predominant, centripetal distribution with traction bronchiectasis and honeycombing. No pleural effusion. Enlarged mediastinal/hilar lymph nodes possibly reactive.
Negative troponin/slightly increased proBNP.
Snoring: At risk for obstructive sleep apnea.
Paraseptal emphysema with suspected COPD
RML 8 x 4mm nodule
-
Conditions present prior admission:
Gout
Former smoker (1�2 PPD x 40 years, quit 2015)
Active nicotine vaping
Anxiety
History of hip AVN
-
Assessment and plan:
Symptoms explained by patient's underlying pulmonary fibrosis-new diagnosis for him.
Reviewed imaging of the chest compared to current CAT scan-he did have mild pulmonary fibrosis back in [address] abdomen pelvis lung cuts, it has progressed.
-
Current CT chest from this admission reviewed. 03/06/2025
No evidence for pulmonary embolism.
There is mild mediastinal lymphadenopathy. The largest lymph node is pretracheal on the right. It measures 2.4 x 1.0 cm cm.
There is moderate bilateral hilar lymphadenopathy. On the right it measures 2.3 x 1.4 cm. On the left it measures approximately 1.9 x 1.2 cm.
There is no axillary lymphadenopathy.
There is moderate pulmonary fibrosis in the periphery of the lungs greatest in the left lower lobe.
-
Patient now has exertional hypoxemia: Oxygen supplementation will be required.
Home oxygen assessment today showed resting SaO2 on room air 91%, with desaturation down to 84% on room air, and he required up to 3 L/min to maintain saturations >88%; he will need 3 L/min upon discharge to be used with activity; of note, his work
is very physical and he was having difficulty completing certain tasks.
-
Discussed with patient strongly advised to stop vaping.
Quit smoking in 2016. 40+ pack-year history of smoking.
-
Differential diagnosis is broad including: Connective tissue disease associated ILD, Idiopathic interstitial pneumonia, with mediastinal lymphadenopathy sarcoidosis is a possibility, not typical for vaping associated injury-no significant
centrilobular nodules or ground glass opacities but is still within the differential diagnosis.
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
-
LFTs normal, renal function normal, no anemia, leukocytosis or Significant peripheral eosinophilia.
There is no hypercalcemia.
Patient denies any other extrapulmonary symptoms including hair loss, rash, arthritis, GI symptoms.
Patient reports having significant reaction to prednisone before with bilateral hip pain severe-prednisone was given for respiratory symptoms many years ago.
-
Patient will require serology evaluation for connective tissue disease, hypersensitivity pneumonitis etc --> labs are pending; CRP is WNL and ESR is also WNL at 24
Probably will require bronchoscopy with BAL as well as lymph node sampling-rule out sarcoidosis.
Will discuss bronchoscopy in the outpatient setting
Dr. Perez discussed with patient and short-term follow-up will be arranged.
-
Okay to continue with budesonide for now and I will add scheduled DuoNebs BID; On CAT scan patient has mild emphysema upper lobe predominant
Not significantly bronchospastic.
Eventual full pulmonary function testing.
Necessity of inhalers can be decided in the outpatient setting based on pulmonary function testing.
-
Rule out cardiac contribution for symptoms
Echo performed on 03/07/2025 shows normal LV size and systolic function with mild concentric LVH, with normal RV size and systolic function, with moderate MR and trace TR
Patient is chest pain-free
EKG: Sinus bradycardia. Right bundle branch block. T wave abnormality consider inferolateral ischemia.
-
Patient also have symptoms suggestive of obstructive sleep apnea.
Interested in workup in the outpatient setting.
-
Will arrange for short-term follow-up in our office. Will need pulmonary function testing, 6-minute walk testing etc.
-
Case discussed with Hospitalist.
-
Stable for discharge home from Pulmonary perspective. Pulmonary service will now sign off. Please call back with any questions or concerns. Recommend to discuss with case management in regards to getting pt home O2
Total time spent today was 41 minutes for this encounter. Time includes reviewing laboratory test/imaging results, reviewing pertinent medical records, obtaining and reviewing medical history, performing an appropriate exam, ordering medications,
tests and procedures. Time also includes documentation of this encounter, coordinating patient care and communicating with other healthcare professionals. Total time does not include separately billed tests performed on this date of service.
Subjective Data
-
Date of Service:
Date of Service: March 09, 2025
Chief Complaint: Pulmonary Follow Up and Dyspnea Follow Up
Subjective:
Patient was seen and evaluated this AM (late note entry). Breathing comfortably on 2L/min, saturating 95%. Denies SOB at rest and he feels much better overall. Eager to go home.
Patient was seen and evaluated on 03/09/2025
Review of Systems
General: Other (Negative unless mentioned above)
Objective Data
Data Reviewed
Vital Signs / I&O / Oxygen:
Vital Signs
Temp Pulse Resp BP Pulse Ox
97.5 F 50 16 125/65 97
03/09/25 07:45 03/09/25 08:16 03/09/25 08:16 03/09/25 07:45 03/09/25 08:16
Intake and Output
03/08/25 03/09/25 03/10/25
06:59 06:59 06:59
Intake Total 540 / 540 780 / 780
Balance 540 / 540 780 / 780
SaO2 97
Nasal Cannula flow liters per 2
minute
Physical Exam
General: Respiratory Distress (negative), Comfortable, Chills (negative), Sweats (negative) and Other ( male, in NAD; pleasant mood)
HEENT: Normocephalic and Anicteric
Cardiovascular: S1-S2 and Peripheral Edema (negative)
Respiratory: Wheeze (negative), Crackles (Bilateral from the bases to middle lung malone), Rhonchi (negative), Non-Labored Respirations and Stridor (negative)
GI: Soft, Non Distended, Non Tender and Normal Bowel Sounds
Neurology: AO x 3 and Tremors (negative)
Skin: Warm, Dry, Cyanosis (negative) and Jaundice (negative)
Labs/Micro/Reports
Lab Data
03/09/25 05:37
03/09/25 05:37
--- NOTE | 2025-03-09 10:55 | W.PN.HOSP.TC ---
Addendum entered and electronically signed by Du Kahn MD 03/09/25 14:27:
Time of discharge 38 minutes
Original Note:
Today's Communication/Plan
-
Monitor vitals
See plan
Needs home O2, manager rn case aware
Discussed with pulmonary, discharged today with outpatient follow-up
Continue with DuoNeb,pulmicort
DC once oxygen set up
Assessment / Plan
Assessment / Plan
General: No Apparent Distress
HEENT: PERRLA
Respiratory: Clear to auscultation, no wheezes
Cardiac: S1/S2 and Regular Rhythm
GI: Soft and Non Tender
Musculoskeletal: No Edema
Skin: Warm and Dry; No Rash
Neuro: AO x 3
Psych: Calm
Shortness of Breath
Hypoxic Respiratory Insufficiency
Former Tobacco Use, Current Vaping
Moderate Pulmonary Fibrosis, will need further workup with pulmonology outpatient
-Duonebs, added Pulmicort. Discussed with pulmonary, can be discharged with DuoNeb and Pulmicort. Follow-up with pulmonary closely outpatient. 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
-Pulmonary following, a lot of workup can be done outpatient which I agree. Echocardiogram with preserved EF, aortic sclerosis without stenosis
-no wheezing and bad reaction to steroids in past (myopathy), will avoid
-will need a sleep study as outpatient
-vaping cessation education
Patient is in need of oxygen on exertion due to pulse oximetry of 91% on room air at rest; 84% on room air with exertion.
Patient was placed on 3L O2 via nasal cannula with saturation of 90%. Oxygen will help to improve hypoxemia.
Patient is mobile within the home. Albuterol therapy has been discussed and is ineffective in treating hypoxemia-related symptoms.
Oxygen will improve the patient's symptoms.
Gout - PARACHUTE RIGGER Allopurinol
PARACHUTE RIGGER Sertraline qhs
Anxiety
DVT PPx Lovenox subQ
FULL CODE
Anticipated Discharge: Today
Subjective/Interval History
-
Date of Service: March 09, 2025
Denies pain
Objective Data
-
Labs:
Laboratory Results
03/09/25
05:37
WBC 6.5
Hgb 13.8
Hct 40.1
Plt Count 107 L
Sodium 137
Potassium 4.1
Chloride 105
Carbon Dioxide 25
BUN 15
Creatinine 0.8
Glucose 100 H
Calcium 9.3
Vital Signs:
Vital Signs
Temp Pulse Resp BP Pulse Ox
97.5 F 50 16 125/65 97
03/09/25 07:45 03/09/25 08:16 03/09/25 08:16 03/09/25 07:45 03/09/25 08:16
I&O
03/08/25 03/09/25 03/10/25
06:59 06:59 06:59
Intake Total 540 / 540 780 / 780
Balance 540 / 540 780 / 780
--- NOTE | 2025-03-09 11:14 | CM ---
Reviewed the chart notes. Order received for home O2. Order and clinicals faxed to [facility]. [facility] has received and processed order. [employer] will deliver portable tank to patient's room in hospital and will deliver concentrator to home. RN
and attending updated. Patient's spouse will provide transportation home.
--- NOTE | 2025-03-09 13:10 | W.DCSUMMARY ---
Discharge Summary
Discharge Data
Date of Admission: 03/06/25
Date of Discharge: 03/09/25
-
Pending Results: Yes
Hospital Course
64-year-old male with past medical history of gout, anxiety, depression came to the hospital with shortness of breath and hypoxia. Imaging was consistent with pulmonary fibrosis. Patient was seen by pulmonary throughout hospitalization who ordered
a bunch of blood work to rule out interstitial lung disease. Pulmonary instructed patient to follow-up closely with them outpatient. He also appeared to had some wheezing so was started on DuoNeb along with Pulmicort. Patient was also in need for
home oxygen which was checked prior to his discharge and he required 3 L of nasal cannula with ambulation. Echocardiogram was also done which showed preserved EF. Once his symptoms continue to improve, he was then discharged home on oxygen with
instructions to follow-up with all his physicians outpatient.
Discharge Plan
-
Patient Disposition: Home (Routine Discharge)
Discharge Diagnosis/Procedures: Acute hypoxic respiratory insufficiency secondary to pulmonary fibrosis
Paraseptal emphysema
Condition: Fair
Diet: As tolerated
Activity: As tolerated
Driving Restrictions: As prior to admission
Bathing Restrictions: None
Activity Restrictions/Additional Instructions:
Please follow-up with all the studies with pulmonary outpatient
Referrals:
Nate Louis MD [Family Provider, Family Practice] - in less than 1 week
Matteo Hernandez MD [Active, Pulmonary Medicine] - in two to three weeks
Referral Note: Spirometry/6MWT
Prescriptions:
New
ipratropium-albuterol 0.5 mg-3 mg(2.5 mg base)/3 mL Solution For Nebulization
3 ml inhalation R Q4HPRN PRN (Reason: sob or wheezing) Qty: 0 0RF
ipratropium-albuterol 0.5 mg-3 mg(2.5 mg base)/3 mL Solution For Nebulization
3 ml inhalation R BID Qty: 180 0RF
budesonide 0.5 mg/2 mL Suspension For Nebulization
0.5 mg inhalation R BID Qty: 60 0RF
(DME) nebulizer and compressor Device
See Rx Instructions .Route Qty: 1 0RF
Rx Instructions:
As directed
albuterol sulfate [Ventolin HFA] 90 mcg/actuation HFA aerosol inhaler
2 puff inhalation Q6H PRN (Reason: shortness of breath or wheezing) Qty: 6.7 0RF
Continued
celecoxib [Celebrex] 200 mg Capsule
200 mg PO HS
aspirin 81 mg Tablet,Delayed Release (Dr/Ec)
324 mg PO DAILYPRN PRN (Reason: CHEST PAINS)
allopurinol 300 mg Tablet
300 mg PO HS
sertraline 50 mg Tablet
25 mg PO HS
Discharge Orders:
Discharge Patient (As Directed); Ordered 03/09/25
Ordered By: Du Kahn
Discharge Date and Time
Discharge Date/Time: 03/09/25 14:09
Print Language: QATARI
[2025-03-09 13:45] VITALS: BP 103/49
[2025-03-10 13:02] LABS: Rheumatoid Agglutinin Less Than 10 IU (<10 IU)
[2025-03-11 16:18] LABS: Jo-1 Antibodies 1 AU/mL (0-40); SSA 52 (Ro)(ENA) Ab, IgG 2 AU/mL (0-40); SSA 60 (Ro)(ENA) Ab, IgG 0 AU/mL (0-40); SSB (La)(ENA) Ab, IgG 1 AU/mL (0-40)
[2025-03-11 17:47] LABS: CCP Antibody IgG/IgA 4 Units (0-19)
[2025-03-11 18:26] LABS: ANA, IgG Reflex to HEp-2 None Detected (None Detected)
[2025-03-11 18:52] LABS: ds-DNA Ab, IgG Reflex To Titer 5 IU (0-24)
== END 2025-03-09 14:09 | disposition home or self-care (01) | DRG 198 ==
LOC: 4 EAST ACU 17:30
PROVIDERS: Internal Medicine Critical Care Medicine; ADMITTING PHYSICIAN Student in an Organized Health Care Education/Training Program; ATTENDING PHYSICIAN Internal Medicine; CONSULT PHYSICIAN Internal Medicine Critical Care Medicine; EMERGENCY PHYSICIAN Emergency Medicine; FAMILY PHYSICIAN Family Medicine
DX: J84.10 Pulmonary fibrosis, unspecified (principal); E78.5 Hyperlipidemia, unspecified; F17.290 Nicotine dependence, other tobacco product, uncomplicated; M10.9 Gout, unspecified; F41.9 Anxiety disorder, unspecified; R06.89 Other abnormalities of breathing; R09.02 Hypoxemia; J43.8 Other emphysema; I70.0 Atherosclerosis of aorta; I34.0 Nonrheumatic mitral (valve) insufficiency; Z79.899 Other long term (current) drug therapy; Z79.82 Long term (current) use of aspirin; Z88.8 Allergy status to other drugs, medicaments and biological substances; Z79.51 Long term (current) use of inhaled steroids
CPT/HCPCS: 71275; 80048; 80053; 82085; 82164; 83516; 83735; 83880; 84484; 85025; 85610; 85652; 85730; 86038; 86140; 86200; 86225; 86235; 86331; 86430; 86606; 93005; 93306; 94640; 96374; 99285; 99406; Q9967

== ENCOUNTER → 2025-05-05 13:39 | Outpatient (REF) | payer OTHER, SELFPAY | LOC: DHSLP 13:39 | PROVIDERS: ATTENDING PHYSICIAN Internal Medicine Critical Care Medicine; FAMILY PHYSICIAN Family Medicine | DX: G47.33 Obstructive sleep apnea (adult) (pediatric) (principal); R09.02 Hypoxemia | CPT/HCPCS: 95800 ==